=== PATIENT | male | born 1965 | race Caucasian/White ===

== ENCOUNTER 2018-12-06 13:39 | Inpatient (IN) | payer BC, OTHER ==
[2018-12-06 14:41] LABS: Protime INR 1.08
[2018-12-06] MEDS ORDERED: NITROGLYCERIN 0.4 MG/TAB SL ONE (14:50)
[2018-12-06 14:55] LABS: Absolute Lymphocytes (CBC) 3.2 K/uL (0.7-4.9); Absolute Monocytes 0.8 K/uL (0.1-1.3); Absolute Neutrophil 6.8 K/uL (1.8-8.0); Basophils % 0.6 % (0-1.3); Eosinophils % 2.4 % (0-4.4); Lymphocytes % 28.5 % (15.3-44.8); MPV 9.4 fL (7.6-11.3)
[2018-12-06 15:01] LABS: Potassium 3.7 mmol/L (3.5-5.1); Troponin (Emerg Dept Use Only) 0.06 ng/mL (0.0-0.045)
--- NOTE | 2018-12-06 15:14 | RAD REPORT ---
EXAM DESCRIPTION: RAD - Chest Single View - 12/06/2018 2:35 pm CLINICAL HISTORY: CHEST PAIN Chest pain. COMPARISON: 3D DIAG ASH BILAT W/CAD dated 12/06/2018CHEST SINGLE VIEW dated 02/25/2010; CHEST SINGLE EW dated 02/24/2010 FINDINGS: Portable technique limits examination quality. The lungs are grossly clear. The heart is normal in size. No displaced fractures. IMPRESSION: No acute intrathoracic process suspected.
[2018-12-06] MEDS ORDERED: FENTANYL CITR 100 MCG/2 ML ONE (15:25)
[2018-12-06] MEDS ORDERED: NA CHLORIDE 0.9% 500 ML ONE (15:25)
[2018-12-06] MEDS ORDERED: ONDANSETRON 4 MG/2 ML VIAL ONE (15:25)
[2018-12-06] MEDS ORDERED: CLOPIDOGREL 75 MG TABLET ONE (15:31)
[2018-12-06] MEDS ORDERED: ENOXAPARIN 80 MG/0.8 ML SQ ONE (15:31)
--- NOTE | 2018-12-06 15:37 | EKG ---
Test Date: 2018-12-06 Test Time: 14:00:34 Call Out Operator: SINTIA MEASUREMENT RESULTS: Intervals: Rate: 98 ND: 114 QRSD: 94 QT: 354 QTc: 451 [place]: P: 73 ND: 114 QRS: 72 T: 70 INTERPRETIVE STATEMENTS: Normal sinus rhythm Normal ECG Compared to ECG 02/27/2010 06:50:48 Left ventricular hypertrophy no longer present Myocardial infarct finding no longer present Electronically Signed On 12-06-18 15:37:28 CDT by Gilson Gordon
--- NOTE | 2018-12-06 16:18 | EDPHYS ---
Physician Documentation [facility] Name: Sky Jasso Age: 53 yrs Sex: Male : 1965 Arrival Date: 12/06/2018 Time: 13:42 Bed 5 Private MD: Cj Barrientos B ED Physician Terell Steward HPI: 12/06 14:29 This 53 yrs old Male presents to ER via Wheelchair with complaints of Chest rn Pain, Arm Pain. 14:29 The patient or guardian reports chest pain that is located primarily in the substernal rn area. 14:29 Onset: just prior to arrival. The pain radiates to The chest pain is described as rn cramping/stiff. Duration: The patient or guardian reports a single episode, that is now resolved. Modifying factors: The symptoms are alleviated by nothing. the symptoms are aggravated by nothing. Severity of pain: At its worst the pain was moderate in the emergency department the pain has resolved. The patient has experienced a previous episode. Reports previous IL several years ago,returns with chest pain, stiff, radiates to neck, similar to previous IL but not as bad, was driving when it began, had neck pain last night, got worse this AM, now chest pain resolved. . Historical: - Allergies: 13:50 No Known Allergies; rb1 - Home Meds: 13:50 lisinopril Oral [Active]; rb1 - PMHx: 13:50 CHF; Hypertension; lumbar injections; rb1 - PSHx: 13:50 cardiac stents; rb1 - Family history:: not pertinent. - Hospitalizations: : No recent hospitalization is reported. ROS: 14:29 Constitutional: Negative for fever, chills, and weight loss, Eyes: Negative for injury, rn pain, redness, and discharge, Neck: Negative for injury, pain, and swelling, Cardiovascular: Negative for palpitations, and edema, Respiratory: Negative for shortness of breath, cough, wheezing, and pleuritic chest pain, Abdomen/GI: Negative for abdominal pain, diarrhea, and constipation, MS/Extremity: Negative for injury and deformity, Neuro: Negative for headache, weakness, numbness, tingling, and seizure. Exam: 14:29 Constitutional: This is a well developed, well nourished patient who is awake, alert, rn and in no acute distress. Head/Face: Normocephalic, atraumatic. Eyes: Pupils equal round and reactive to light, extra-ocular motions intact. Lids and lashes normal. Conjunctiva and sclera are non-icteric and not injected. Cornea within normal limits. Periorbital areas with no swelling, redness, or edema. Neck: Trachea midline, no thyromegaly or masses palpated, and no cervical lymphadenopathy. Supple, full range of motion without nuchal rigidity, or vertebral point tenderness. No Meningismus. Cardiovascular: Regular rate and rhythm. No pulse deficits. Respiratory: Lungs have equal breath sounds bilaterally, clear to auscultation. No increased work of breathing, no retractions or nasal flaring. Abdomen/GI: Soft, non-tender. No evidence of tenderness throughout. MS/ Extremity: Pulses equal, no cyanosis. Neurovascular intact. Full, normal range of motion. Equal circumference. Neuro: Awake and alert, GCS 15, oriented to person, place, time, and situation. Cranial nerves II-XII grossly intact. Motor strength 5/5 in all extremities. Sensory grossly intact. Vital Signs: 13:50 BP 142 / 90; Pulse 106; Resp 18; Temp 98.2; Pulse Ox 97% on R/A; Weight 86.18 kg; rb1 Height 5 ft. 10 in. (177.80 cm); Pain 5/10; 14:44 BP 148 / 95; Pulse 105; Resp 16 S; Pulse Ox 95% on R/A; Pain 6/10; iw 15:04 BP 108 / 81; Pulse 94; Resp 16; Pulse Ox 97% on R/A; Pain 8/10; iw 15:56 BP 135 / 91; Pulse 84; Resp 16 S; Pulse Ox 98% on R/A; Pain 0/10; iw 17:50 BP 137 / 86; Pulse 73; Resp 16; Pulse Ox 98% on R/A; iw 19:44 BP 132 / 94; Pulse 82; Resp 17; Pulse Ox 98% on R/A; tl2 13:50 Body Mass Index 27.26 (86.18 kg, 177.80 cm) rb1 MDM: 13:56 Patient medically screened. rn 14:11 ED course: Denies current chest pain. rn 16:16 Differential diagnosis: acute myocardial infarction, acute pericarditis, coronary rn artery disease pericarditis, stable angina, unstable angina. Data reviewed: vital signs, nurses notes, lab test result(s), EKG, radiologic studies, plain films, and as a result, I will admit patient. Counseling: I had a detailed discussion with the patient and/or guardian regarding: the historical points, exam findings, and any diagnostic results supporting the discharge/admit diagnosis, lab results, radiology results, the need for further work-up and treatment in the hospital. Response to treatment: the patient's symptoms have markedly improved after treatment, and as a result, I will admit patient. Admission orders: after a detailed discussion of the patient's condition and case, the admit orders are written by me. ED course: Chest pain resolved, mild elevation in troponin, UA vs NSTEMI, will admit to Dr. Jimenez with cardiology consult. . 16:16 The patient was not given aspirin in the Emergency Department. Patient reports taking rn aspirin within the past 24 hours. 12/06 14:11 Order name: Basic Metabolic Panel; Complete Time: 15:11 12/06 14:11 Order name: CBC with Diff; Complete Time: 15: 12/06 14:11 Order name: NT PRO-BNP; Complete Time: 15:11 rn 12/06 14:11 Order name: PT-INR; Complete Time: 15:11 12/06 14:11 Order name: Troponin (emerg Dept Use Only); Complete Time: 15:11 rn 12/06 14:11 Order name: XRAY Chest (1 view); Complete Time: 15:15 rn 12/06 13:56 Order name: EKG; Complete Time: 13:57 12/06 17:55 Order name: Diet Heart Healthy; Complete Time: 17:56 12/06 13:56 Order name: EKG - Nurse/Tech; Complete Time: 14:08 12/06 14:11 Order name: Cardiac monitoring; Complete Time: 15:21 rn 12/06 14:11 Order name: IV Saline Lock; Complete Time: 14:26 rn 12/06 14:11 Order name: Labs collected and sent; Complete Time: 14:26 rn 12/06 14:11 Order name: O2 Per Protocol; Complete Time: 15:21 rn 12/06 14:11 Order name: O2 Sat Monitoring; Complete Time: 15:21 rn Administered Medications: 14:40 Drug: Nitroglycerin 0.4 mg Route: Sublingual; iw 15:18 Drug: fentaNYL (PF) 25 mcg Route: IVP; Site: right forearm; iw 15:18 Drug: Zofran 4 mg Route: IVP; Site: right forearm; iw 15:18 Drug: NS 0.9% 500 ml Route: IV; Rate: bolus; Site: right forearm; iw 15:28 Drug: PlaVIX 75 mg Route: PO; iw 15:29 Drug: Lovenox 80 mg Route: Sub-Q; Site: right lower abdomen; iw Disposition: 12/06/18 16:18 Hospitalization ordered by Eduardo Jimenez for Inpatient Admission. Preliminary diagnosis are Chest pain, unspecified, Non-ST elevation (NSTEMI) myocardial infarction. - Bed requested for Telemetry/MedSurg (Inpatient). - Status is Inpatient Admission. tl2 - Condition is Stable. - Problem is new. - Symptoms have improved. UTI on Admission? No Signatures: Dispatcher [employer] EDNavya Beltran RN RN Monica Piña RN RN Terell Steward MD MD rn Smirch, Shelby, RN RN Vannessa Das RN RN [facility] Jaymie Young RN RN tl2 Corrections: (The following items were deleted from the chart) 18:14 16:18 Hospitalization Ordered by Eduardo Jimenez DO for Inpatient Admission. Preliminary dw diagnosis is Chest pain, unspecified; Non-ST elevation (NSTEMI) myocardial infarction. Bed requested for Telemetry/MedSurg (Inpatient). Status is Inpatient Admission. Condition is Stable. Problem is new. Symptoms have improved. UTI on Admission? No. rn 20:14 18:14 12/06/2018 16:18 Hospitalization Ordered by Eduardo Jimenez DO for Inpatient tl2 Admission. Preliminary diagnosis is Chest pain, unspecified; Non-ST elevation (NSTEMI) myocardial infarction. Bed requested for Telemetry/MedSurg (Inpatient). Status is Inpatient Admission. Condition is Stable. Problem is new. Symptoms have improved. UTI on Admission? No. dw
--- NOTE | 2018-12-06 16:18 | ER ---
Nurse's Notes [facility] Name: Sky Jasso Age: 53 yrs Sex: Male : 1965 Arrival Date: 12/06/2018 Time: 13:42 Bed 5 Private MD: Cj Barrientos B Diagnosis: Chest pain, unspecified;Non-ST elevation (NSTEMI) myocardial infarction Presentation: 12/06 13:46 Presenting complaint: Patient states: c/o neck stiffness last night and chest pain 4/10 rb1 now, radiates to the left arm. Had to loop puller to vomit on the way here due to pain 05/05. Denies cough, SOB, fever. Transition of care: patient was not received from another setting of care. Onset of symptoms was December 05, 2018 at 20:00. Risk Assessment: Do you want to hurt yourself or someone else?. 13:46 Method Of Arrival: Wheelchair rb1 13:46 Acuity: SHLOMO 3 rb1 Triage Assessment: 13:50 General: Appears in no apparent distress. comfortable, Behavior is calm, cooperative, rb1 Denies fever. Neuro: Level of Consciousness is awake, alert, obeys commands, Oriented to person, place, time, situation. Cardiovascular: Rhythm is sinus tachycardia. Respiratory: Airway is patent Respiratory effort is even, unlabored, Respiratory pattern is regular, symmetrical. GI: Reports nausea, vomiting. Derm: Skin is pink, warm \T\ dry. Historical: - Allergies: 13:50 No Known Allergies; rb1 - Home Meds: 13:50 lisinopril Oral [Active]; rb1 - PMHx: 13:50 CHF; Hypertension; lumbar injections; rb1 - PSHx: 13:50 cardiac stents; rb1 - Family history:: not pertinent. - Hospitalizations: : No recent hospitalization is reported. Screenin:15 Abuse screen: Denies threats or abuse. Denies injuries from another. Nutritional hb screening: No deficits noted. Tuberculosis screening: No symptoms or risk factors identified. Fall Risk None identified. Assessment: 14:40 Reassessment: pt c/o increasing left sided chest pain 6/10, radiates to back ,started iw coming back just now, Dr. Steward notified, verbal order for nitro SL, given now. 14:50 Reassessment: pt c/o nausea, BP down to 99/69 after Nitro, pain unchanged. iw 15:04 Reassessment: pt states nausea has gotten better, pressure up to 113/83, pain starting iw to increase. 15:56 Reassessment: Patient appears in no apparent distress at this time. Patient and/or iw family updated on plan of care and expected duration. Pain level reassessed. Patient is alert, oriented x 3, equal unlabored respirations, skin warm/dry/pink. Patient denies pain at this time. Patient states feeling better. Patient states symptoms have improved. Vital Signs: 13:50 BP 142 / 90; Pulse 106; Resp 18; Temp 98.2; Pulse Ox 97% on R/A; Weight 86.18 kg; rb1 Height 5 ft. 10 in. (177.80 cm); Pain 5/10; 14:44 BP 148 / 95; Pulse 105; Resp 16 S; Pulse Ox 95% on R/A; Pain 6/10; iw 15:04 BP 108 / 81; Pulse 94; Resp 16; Pulse Ox 97% on R/A; Pain 8/10; iw 15:56 BP 135 / 91; Pulse 84; Resp 16 S; Pulse Ox 98% on R/A; Pain 0/10; iw 17:50 BP 137 / 86; Pulse 73; Resp 16; Pulse Ox 98% on R/A; iw 19:44 BP 132 / 94; Pulse 82; Resp 17; Pulse Ox 98% on R/A; tl2 13:50 Body Mass Index 27.26 (86.18 kg, 177.80 cm) rb1 ED Course: 13:42 Patient arrived in ED. mr 13:43 Cj Barrientos MD is Private Physician. mr 13:49 Triage completed. rb1 13:56 Terell Steward MD is Attending Physician. rn 14:00 EKG done, by photo tech. reviewed by Terell Steward MD. lt1 14:10 Monica Piña, CARY is Primary Nurse. iw 14:15 Arm band placed on. hb 14:24 Initial lab(s) drawn, by me, sent to lab. Inserted saline lock: 20 gauge in right iw forearm, using aseptic technique. Blood collected. Patient maintains SpO2 saturation greater than 95% on room air. 14:29 X-ray completed. Portable x-ray completed in exam room. Patient tolerated procedure sw well. 14:35 XRAY Chest (1 view) In Process Unspecified. EDMS 16:17 Eduardo Jimenez DO is Hospitalizing Provider. rn 19:01 No provider procedures requiring assistance completed. Patient admitted, IV remains in iw place. Administered Medications: 14:40 Drug: Nitroglycerin 0.4 mg Route: Sublingual; iw 15:18 Drug: fentaNYL (PF) 25 mcg Route: IVP; Site: right forearm; iw 15:18 Drug: Zofran 4 mg Route: IVP; Site: right forearm; iw 15:18 Drug: NS 0.9% 500 ml Route: IV; Rate: bolus; Site: right forearm; iw 15:28 Drug: PlaVIX 75 mg Route: PO; iw 15:29 Drug: Lovenox 80 mg Route: Sub-Q; Site: right lower abdomen; iw Outcome: 16:18 Decision to Hospitalize by Provider. rn 20:14 Patient left the ED. tl2 Signatures: Dispatcher [employer] EDGA [place] Monica Piña RN RN iw Terell Steward MD MD rn Warren, Shannon sw Barber, Rebecca RN CARY [facility] Anika Lay RN RN hb Knox, Taylor, RN RN tl2 Herminia Sutton 1 Corrections: (The following items were deleted from the chart) 15:04 14:50 Reassessment: pt states nausea has gotten better, pressure up to 113/83, pain iw starting to increase iw
--- NOTE | 2018-12-06 17:08 | P.HP ---
Certification for Inpatient Patient admitted to: Observation With expected LOS: <2 Midnights Patient will require the following post-hospital care: None Practitioner: I am a practitioner with admitting privileges, knowledge of patient current condition, hospital course, and medical plan of care. Services: Services provided to patient in accordance with Admission requirements found in Title 42 Section 412.3 of the Code of Federal Regulations Patient History Date of Service: 12/06/18 Primary Care Provider: Dr. Villafuerte; Cardiology-Dr. Gardner; Pain-Dr. Barrientos Reason for admission: Chest pain History of Present Illness: 53-year-old male presented to the emergency room with chest pain. Patient reported chest pain this morning. It was mainly to the left side. If it would radiate to the left shoulder. It was associated with some nausea, vomiting and shortness of breath. Patient reported a stiff neck last night. Patient with prior history of CAD, hypertension. Patient reports history of AL - 7 years ago with 2 stents placed. Patient reports having a stress test several months ago. He only recollected that the doctor told him that he had carotid arterial disease with 80% blockage noted. Patient reports chest pain as being similar to his prior heart attack. In the ER patient evaluated. Blood pressure slightly elevated. Chest x-ray unremarkable. EKG shows no significant ST changes. Initial troponin 0.06. White count 11.1. Hemoglobin 14. Sodium 140, potassium 3.7. Creatinine 1.12. Patient was admitted for further evaluation. When I saw the patient ER, he appeared stable. He is without any chest pain. ER reports that the patient did get nitroglycerin with reports of increased nausea. Patient was then given Zofran with improvement. Allergies No Known Allergies Allergy (Unverified 06/27/17 18:03) Home medications list reviewed: Yes Home Medications: Hydrocodone Bit/Acetaminophen [Hydrocodon-Acetaminophn 10-325] 1 tab PO Q8HP 09/12 Lisinopril [Prinivil] 20 mg PO DAILY 06/27/17 Ciprofloxacin HCl [Cipro 500 MG Tablet] 500 mg PO DAILY #14 tab 06/29/17 metroNIDAZOLE [Flagyl] 500 mg PO Q8H #42 tablet 06/29/17 - Past Medical/Surgical History Diabetic: No -: HTN -: CAD, prior AL with 2 stents -: Carotid arterial disease -: Hyperlipidemia -: Chronic pain -: Stent x2 Psychosocial/ Personal History: Patient is - Family History Father -: Heart disease Mother -: Heart disease - Social History Smoking Status: Light Tobacco smoker (1-9 cigarettes/day) Counseled patient to stop smoking for: less than 10 minutes Smoking therapy provided: Yes Patient receptive to therapy: Yes Alcohol use: Yes CD- Drugs: No Caffeine use: Yes Place of Residence: Home Review of Systems General: As per HPI Eyes: Unremarkable ENT: Unremarkable Respiratory: As per HPI Cardiovascular: Chest Pain, As per HPI Gastrointestinal: Nausea, Vomiting, As per HPI Genitourinary: Unremarkable Musculoskeletal: Unremarkable Integumentary: Unremarkable Neurological: Unremarkable Lymphatics: Unremarkable Physical Examination - Physical Exam General: Alert, In no apparent distress, Oriented x3, Cooperative HEENT: Atraumatic, Normocephalic, PERRLA, Mucous membr. moist/pink, EOMI Neck: Supple, No Thyromegaly Respiratory: Clear to auscultation bilaterally, Normal air movement Cardiovascular: Normal pulses, Regular rate/rhythm Gastrointestinal: Normal bowel sounds, Soft and benign, Non-distended, No tenderness, No masses, No rebound, No guarding Musculoskeletal: No erythema, No tenderness, No warmth Integumentary: No tenderness/swelling, No erythema, No warmth, No cyanosis Neurological: Normal speech, Normal strength at 5/5 x4 extr, Normal tone, Normal affect - Studies Laboratory Data (last 24 hrs) 12/06/18 14:23: PT 12.7 H, INR 1.08 12/06/18 14:23: WBC 11.1 H, Hgb 14.8, Hct 44.0, Plt Count 224 12/06/18 14:23: Sodium 140, Potassium 3.7, BUN 19 H, Creatinine 1.12, Glucose 179 H Assessment and Plan - Plan Impression: Chest pain likely unstable angina with history of CAD and 2 prior stents Hypertension Hyperlipidemia Chronic pain Plan: Chest pain likely unstable angina with history of CAD and 2 prior stents: Patient will be admitted for further evaluation. Will continue with aspirin, lisinopril, statin medication. Will continue with DVT prophylaxis-Lovenox. Will continue to monitor cardiac enzymes and telemetry. Will obtain echocardiogram. Cardiology has been consulted. Anticipate likely need for cardiac evaluation-heart catheterization to further evaluate. Await further recommendations. Hypertension: Continue with lisinopril. Will continue to adjust medication. Hyperlipidemia: Will start Lipitor 80 mg daily. Chronic pain: Will continue with home medication. Discharge Plan: Home Plan to discharge in: 24 Hours - Advance Directives Does patient have a Living Will: No Does patient have a Durable POA for Healthcare: No - Code Status/Comfort Care Code Status Assessed: Yes (Patient is full code. ) Time Spent Managing Pts Care (In Minutes): 55
[2018-12-06] MEDS ORDERED: METOPROLOL TARTRATE 5 MG/5 ML INJ IV ONE ×2 (17:12→18:11)
[2018-12-06] MEDS ORDERED: NA CHLORIDE 0.9% 1,000 ML ONE (17:13)
[2018-12-06 20:44] VITALS: BMI 26.7
[2018-12-06] MEDS ORDERED: HYDROCODONE/APAP 10/325 TAB PO PRN (20:54)
[2018-12-06] MEDS ORDERED: ACETAMINOPHEN 500 MG TAB PO PRN (20:54)
[2018-12-06] MEDS ORDERED: MORPHINE 2 MG/ML SYR IV PRN (20:54)
[2018-12-06] MEDS ORDERED: ONDANSETRON 4 MG/2 ML VIAL IV PRN (20:54)
[2018-12-06] MEDS ORDERED: NITROGLYCERIN 0.4 MG/TAB SL PRN (20:54)
[2018-12-06 21:20] LABS: Urine Appearance CLEAR; Urine Bilirubin NEGATIVE (NEG); Urine Blood NEGATIVE (NEG); Urine Color YELLOW; Urine Glucose TRACE (NEG); Urine Protein NEGATIVE (NEG); Urine Specific Gravity 1.025 (1.005-1.030); Urine Urobilinogen 0.2 mg/dL (0.2-1.0); Urine pH 6.5 (5.0-7.0)
[2018-12-06 21:26] LABS: Urine Microscopic Reflex NO UMIC
[2018-12-06] MEDS: NA CHLORIDE 0.9% 1,000 ML IV SCH (21:35)
[2018-12-06] MEDS: ATORVASTATIN 80 MG TAB PO SCH (21:36)
[2018-12-06] MEDS: FAMOTIDINE 20 MG TAB PO SCH (21:36)
[2018-12-06] MEDS: LISINOPRIL 10 MG TAB PO SCH (21:36)
[2018-12-06 22:38] LABS: Thyroid Stimulating Hormone 1.29 uIU/mL (0.360-3.740)
[2018-12-06 22:39] LABS: CKMB Creatine Kinase MB 14.4 ng/mL (0.3-3.6); Troponin I 1.36 ng/mL (0.0-0.045)
[2018-12-07 05:53] LABS: Absolute Lymphocytes (CBC) 3.4 K/uL (0.7-4.9); Absolute Monocytes 0.9 K/uL (0.1-1.3); Absolute Neutrophil 6.2 K/uL (1.8-8.0); Basophils % 0.5 % (0-1.3); Eosinophils % 2.9 % (0-4.4); Hematocrit 43.2 % (39.6-49.0); Lymphocytes % 31.4 % (15.3-44.8); MPV 9.2 fL (7.6-11.3); Monocytes % 8.3 % (3.3-12.3); RBC Red Blood Cell Count 4.61 M/uL (4.33-5.43)
[2018-12-07 06:18] LABS: Potassium 4.4 mmol/L (3.5-5.1)
[2018-12-07 06:20] LABS: CKMB Creatine Kinase MB 18.8 ng/mL (0.3-3.6); Magnesium 1.2 mg/dL (1.8-2.4); Troponin I 2.87 ng/mL (0.0-0.045)
[2018-12-07] MEDS ORDERED: Magnesium Sulfate 2gm IVPB 2 G/50 ML BAG IV ONE ×2 (06:42→19:51)
[2018-12-07] MEDS: ASPIRIN EC 81 MG TAB PO SCH (08:35)
[2018-12-07] MEDS: FAMOTIDINE 20 MG TAB PO SCH ×2 (08:35→20:21)
[2018-12-07] MEDS: LISINOPRIL 10 MG TAB PO SCH ×2 (08:35→20:19)
[2018-12-07] MEDS: ENOXAPARIN 80 MG/0.8 ML SQ SCH ×3 (08:36→20:19)
[2018-12-07] MEDS ORDERED: ENOXAPARIN 40 MG/0.4 ML SQ SCH (09:00)
--- NOTE | 2018-12-07 10:49 | P.PN ---
Subjective Date of Service: 12/07/18 Primary Care Provider: Dr. Villafuerte; Cardiology-Dr. Gardner; Pain-Dr. Barrientos Chief Complaint: Chest pain Subjective: Doing well Physical Examination - Vital Signs Temperature: 97.5 F Blood Pressure: 127/75 Pulse: 69 Respirations: 18 Pulse Ox (%): 97 - Physical Exam General: Alert, In no apparent distress, Oriented x3, Cooperative HEENT: Atraumatic Neck: Supple Respiratory: Clear to auscultation bilaterally, Normal air movement Cardiovascular: Normal pulses, Regular rate/rhythm Gastrointestinal: Normal bowel sounds, Soft and benign, Non-distended, No tenderness, No masses, No rebound, No guarding Musculoskeletal: No erythema, No tenderness, No warmth Integumentary: No tenderness/swelling, No erythema, No warmth, No cyanosis Neurological: Normal speech, Normal strength at 5/5 x4 extr, Normal tone, Normal affect - Studies Laboratory Data (last 24 hrs) 12/07/18 05:13: WBC 10.9, Hgb 14.6, Hct 43.2, Plt Count 196 12/07/18 05:13: Sodium 142, Potassium 4.4, BUN 16, Creatinine 0.88, Glucose 94, Magnesium 1.2 L*, Troponin I 2.87 H* D, Triglycerides 147, Cholesterol 151, HDL Cholesterol 39 L, Cholesterol/HDL Ratio 3.87 12/06/18 21:55: Troponin I 1.36 H* 12/06/18 14:23: PT 12.7 H, INR 1.08 12/06/18 14:23: WBC 11.1 H, Hgb 14.8, Hct 44.0, Plt Count 224 12/06/18 14:23: Sodium 140, Potassium 3.7, BUN 19 H, Creatinine 1.12, Glucose 179 H Medications List Reviewed: Yes Assessment & Plan Discharge Plan: Home Plan to discharge in: 24 Hours Physician Review Additional Text: Impression: Chest pain secondary to non ST wave NJ with unstable angina, history of CAD and 2 prior stents Hypertension Hyperlipidemia Chronic pain Plan: Chest pain secondary to non ST wave NJ with unstable angina, history of CAD and 2 prior stents: Troponin elevated. Patient continues with medication treatment. Cardiology to assess. Anticipate heart catheterization today. Await findings. Will discuss further with cardiology. Hypertension: Continue with medication. Will monitor and adjust appropriately.. Hyperlipidemia: Continue medication Chronic pain: Will continue with home medication. Time Spent Managing Pts Care (In Minutes): 55
[2018-12-07] MEDS ORDERED: LIDOCAINE 1% MPF 30 ML VIAL ONE (11:43)
[2018-12-07] MEDS ORDERED: HEPA 1000U/500MLS 1,000 UNIT/500 ML BAG IV ONE (11:43)
[2018-12-07] MEDS ORDERED: FENTANYL CITR 100 MCG/2 ML ONE ×2 (12:13→12:24)
[2018-12-07] MEDS ORDERED: MIDAZOLAM HCL 2 MG/2 ML INJ ONE ×2 (12:13→12:24)
[2018-12-07] MEDS ORDERED: NA CHLORIDE 0.9% 50 ML ONE (12:14)
[2018-12-07] MEDS ORDERED: ATROPINE SULF 1 MG/10 ML SYR IV ONE (12:14)
--- NOTE | 2018-12-07 12:32 | ECHO ---
HEIGHT: 5 ft 10 in WEIGHT: 186 lb 8 oz DATE OF STUDY: 12/07/[address]: Eduardo Jimenez DO 2-DIMENSIONAL: YES M.MODE: YES DOPPLER: YES COLOR FLOW: YES TDS: NO PORTABLE: NO DEFINITY: NO BUBBLE STUDY: NO DIAGNOSIS: CHEST PAIN, HYPERTENSION CARDIAC HISTORY: CATHERIZATION: YES SURGERY: NO PROSTHETIC VALVE: NO PACEMAKER: NO MEASUREMENTS (cm) DIASTOLIC (NORMALS) SYSTOLIC (NORMALS) IVSd 1.1 (0.6-1.2) LA Diam 3.4 (1.9-4.0) LVEF 50% LVIDd 4.8 (3.5-5.7) LVIDs 3.5 (2.0-3.5) %FS 26% LVPWd 1.0 (0.6-1.2) Ao Diam 3.1 (2.0-3.7) 2 DIMENSIONAL ASSESSMENT: RIGHT ATRIUM: NORMAL LEFT ATRIUM: NORMAL RIGHT VENTRICLE: NORMAL LEFT VENTRICLE: NORMAL TRICUSPID VALVE: NORMAL MITRAL VALVE: NORMAL PULMONIC VALVE: NORMAL AORTIC VALVE: NORMAL PERICARDIAL EFFUSION: NONE AORTIC ROOT: NORMAL LEFT VENTRICULAR WALL MOTION: NORMAL DOPPLER/COLOR FLOW: MILD TRICUSPID REGURGITATION. COMMENTS: NORMAL LEFT VENTRICULAR SIZE AND FUNCTION. NO WALL MOTION ABNORMALITY. NO EFFUSION. MILD TRICUSPID REGURGITATION. TECHNOLOGIST: Alexis MCCOLLUM
[2018-12-07] MEDS ORDERED: PRASUGREL (EFFIENT) 10 MG TAB ONE (13:07)
[2018-12-07] MEDS: NA CHLORIDE 0.9% 1,000 ML IV SCH (16:54)
--- NOTE | 2018-12-07 17:10 | CON ---
Date of Consultation: 12/07/2018 The patient was admitted to Dr. Jimenez' service on 12/06/2018. I saw the patient on 12/07/2018. Reason For Consultation: Non-ST elevation myocardial infarction. History Of Present Illness: Mr. Jasso is a 53-year-old white male with known history of hypertensio n, coronary artery disease, dyslipidemia, status post coronary artery disease with stenting in the [facility] by Dr. Gardner. He said his last stent was approximately 7 years ago. About a year ago, he had a stress test that was negative. He came in with chest pain radiating to the arm, elevated troponin, and abnormal EKG consistent with non-STEMI. His symptoms have been going on for about an hour. Past Medical History: As stated above. Allergies: NONE. Review of Systems: Negative. Social History: Positive for tobacco. Family History: Positive for heart disease. Medications: At home include lisinopril, Lipitor, aspirin, and carvedilol. Physical Examination: Vital Signs: Stable. He was afebrile. HEENT: Negative. Neck: Supple without any bruit, lymphadenopathy, JVD, or thyromegaly. Chest: Clear to auscultation and percussion. Cardiac: Revealed a regular rhythm and rate without any murmurs, gallops, or rubs. Abdomen: Benign. Extremities: Revealed no clubbing, cyanosis, or edema. Diagnostic Data: As stated earlier. Impression And Plan: 1.Smv-[id number] myocardial infarction. 2.History of coronary artery disease, status post stent in the past. 3.Dyslipidemia. 4.Hypertension. 5.History of congestive heart failure. The patient is stable, hemodynamically asymptomatic. He is on the appropriate medical therapy. Case was discussed with him and with Dr. Jimenez with the plan is for heart catheterization to define his coronary anatomy today. The patient understands the risk and the benefit of the procedure and he agr ees to proceed. DAMIAN/CHRISTOPHER Voice ID: [id number] Report ID: [id number]
[2018-12-07] MEDS: ATORVASTATIN 80 MG TAB PO SCH (20:19)
--- NOTE | 2018-12-08 00:07 | OP ---
Date of Procedure: 12/07/2018 Surgeon: Mikie Berkowitz MD Waste/Materials Exchange Specialist: Diogo Waldron and Ms. Mitchell. Admitted to Dr. Jimenez on 12/06/2018. Procedures: Left heart catheterization, selective coronary arteriogram, and angioplasty of the circu mflex. Indication For The Procedure: [id number] myocardial infarction. Mr. Jasso is 53, has a history of hypertension, dyslipidemia, CAD, status post circumflex stent many years ago. Last stress test about a year ago was negative. He came in with chest pain, left arm ra diation, positive troponin. Brought to the labor economist today as an inpatient after signing a consent. He was prepped and draped in routine sterile fashion, given 4 mg of Versed and 100 of fentanyl for IV sedation. Right common femoral artery access was obtained successfully. Angiography there was norm al. Angio-Seal was used to close the case. Diagnostic catheterization using Yen catheter reveal ed a normal RCA, which is right-dominant and normal LAD. He had about a 99% in-stent restenosis of t he circumflex and it was a long stent. We used an XB 3.0 with side hole guide, a [place] wire to cros s the lesion successfully. Dilatation with a 2.5 x 15 Emerge balloon. Multiple dilatation along the stent revealed 0% residual, no dissection. It was decided not to stent it considering the lesion wa s at the bifurcation of an OM and a very small nondominant circumflex. We gave him Angiomax, Effient , and aspirin during the procedure. There were no complications. Blood Loss: 5 cc. Total Conscious Sedation: 45 minutes. Willower: Myself. Final Diagnosis: CAD, status post successful angioplasty of an in-stent restenosis in the circumflex . Plan: To send him home tomorrow morning and I will see him in the office in 2 weeks. He will be on aspirin, statin, Plavix, and his home medication. NB/MODL Voice ID: [id number] Report ID: [id number]
[2018-12-08 06:08] LABS: Absolute Monocytes 0.9 K/uL (0.1-1.3); Absolute Neutrophil 5.3 K/uL (1.8-8.0); Basophils % 0.4 % (0-1.3); Eosinophils % 2.6 % (0-4.4); Lymphocytes % 31.8 % (15.3-44.8); MPV 9.2 fL (7.6-11.3); Monocytes % 9.5 % (3.3-12.3); RBC Red Blood Cell Count 4.81 M/uL (4.33-5.43)
[2018-12-08 06:27] LABS: Potassium 4.7 mmol/L (3.5-5.1)
[2018-12-08] MEDS: ENOXAPARIN 80 MG/0.8 ML SQ SCH (08:14)
[2018-12-08] MEDS: LISINOPRIL 10 MG TAB PO SCH (08:15)
[2018-12-08] MEDS: ASPIRIN EC 81 MG TAB PO SCH (08:15)
[2018-12-08] MEDS: FAMOTIDINE 20 MG TAB PO SCH (08:15)
[2018-12-08 08:17] VITALS: BP 140/90
--- NOTE | 2018-12-08 08:44 | P.DS ---
Admission Date: 12/07/18 Discharge Date: 12/08/18 Primary Care Provider: Dr. Villafuerte; Cardiology-Dr. Gardner; Pain-Dr. Barrientos Disposition: ROUTINE DISCHARGE Discharge Condition: GOOD Reason for Admission: Chest pain Consultations: Cardiology-Dr. Berkowitz Procedures: ECHO: EF 50% LEFT VENTRICULAR WALL MOTION: NORMAL DOPPLER/COLOR FLOW: MILD TRICUSPID REGURGITATION. COMMENTS: NORMAL LEFT VENTRICULAR SIZE AND FUNCTION. NO WALL MOTION ABNORMALITY. NO EFFUSION. MILD TRICUSPID REGURGITATION. Heart Cath: Date of Procedure: 12/07/2018 Surgeon: Mikie Berkowitz MD Inspector Timers: Diogo Waldron and Ms. Mitchell. Admitted to Dr. Jimenez on 12/06/2018. Procedures: Left heart catheterization, selective coronary arteriogram, and angioplasty of the circumflex. Indication For The Procedure: [id number] myocardial infarction. Mr. Jasso is 53, has a history of hypertension, dyslipidemia, CAD, status post circumflex stent many years ago. Last stress test about a year ago was negative. He came in with chest pain, left arm radiation, positive troponin. Diagnostic catheterization using Yen catheter revealed a normal RCA, which is right-dominant and normal LAD. He had about a 99% in-stent restenosis of the circumflex and it was a long stent. Multiple dilatation along the stent revealed 0% residual, no dissection. It was decided not to stent it considering the lesion was at the bifurcation of an OM and a very small nondominant circumflex. Blood Loss: 5 cc. Final Diagnosis: CAD, status post successful angioplasty of an in-stent restenosis in the circumflex. Medical Problem List: Chest pain secondary to non ST wave SD with unstable angina/CAD, status post heart catheterization with angioplasty of instent restenosis of the circumflex artery, history of CAD and 2 prior stents Hypertension Hyperlipidemia Chronic pain Brief History of Present Illness: 53-year-old male presented to the emergency room with chest pain. Patient reported chest pain this morning. It was mainly to the left side. If it would radiate to the left shoulder. It was associated with some nausea, vomiting and shortness of breath. Patient reported a stiff neck last night. Patient with prior history of CAD, hypertension. Patient reports history of SD - 7 years ago with 2 stents placed. Patient reports having a stress test several months ago. He only recollected that the doctor told him that he had carotid arterial disease with 80% blockage noted. Patient reports chest pain as being similar to his prior heart attack. In the ER patient evaluated. Blood pressure slightly elevated. Chest x-ray unremarkable. EKG shows no significant ST changes. Initial troponin 0.06. White count 11.1. Hemoglobin 14. Sodium 140, potassium 3.7. Creatinine 1.12. Patient was admitted for further evaluation. When I saw the patient ER, he appeared stable. He is without any chest pain. ER reports that the patient did get nitroglycerin with reports of increased nausea. Patient was then given Zofran with improvement. Hospital Course: Patient presented with chest pain secondary to non ST wave SD with unstable angina/CAD. Patient seen and evaluated by Cardiology. Cardiology recommended heart catheterization to further evaluate. Heart catheterization revealed normal RCA, which is right dominant and normal LAD. He had about 99% instent restenosis of the circumflex. It was a long stent. Multiple dilations of the stent revealed 0% residual and no dissection. It was decided not to stent it considering the a lesion was at the bifurcation of the OM and very small nondominant circumflex. Patient tolerated procedure well. He is without any significant chest pain. At discharge patient will continue with aspirin 81 mg daily, Plavix 75 mg daily, Lipitor 80 mg daily, and lisinopril 10 mg 1 pill twice daily. Patient will be provided nitroglycerin as needed for chest pain cardiology in 2-4 weeks time monitor his progress. Recommend tobacco cessation. Patient with underlying hypertension. Medications have been adjusted. At discharge he will continue with lisinopril 10 mg 1 pill twice daily. Recommend to maintain blood pressures less 150/80. Further adjustment can be done by his PCP or cardiology. Patient with hyperlipidemia. Medication has been adjusted. Patient will continue with Lipitor 80 mg daily. Patient with chronic pain. Patient may continue with his current medication. Patient with tobacco abuse. Recommend tobacco cessation. Patient currently vapes. This can be further addressed as an outpatient. Vital Signs/Physical Exam: Temp Pulse Resp BP Pulse Ox 98.1 F 72 16 140/90 96 12/08/18 04:00 12/08/18 08:15 12/08/18 04:00 12/08/18 08:15 12/08/18 04:00 General: Alert, In no apparent distress, Oriented x3, Cooperative HEENT: Atraumatic Neck: Supple Respiratory: Clear to auscultation bilaterally, Normal air movement Cardiovascular: Normal pulses, Regular rate/rhythm Gastrointestinal: Normal bowel sounds, Soft and benign, Non-distended, No tenderness, No masses, No rebound, No guarding Musculoskeletal: No erythema, No tenderness, No warmth Integumentary: No tenderness/swelling, No erythema, No warmth, No cyanosis Neurological: Normal speech, Normal strength at 5/5 x4 extr, Normal tone, Normal affect Laboratory Data at Discharge: WBC 9.4 K/uL (4.3-10.9) 12/08/18 05:31 Hgb 15.1 g/dL (13.6-17.9) 12/08/18 05:31 Hct 45.0 % (39.6-49.0) 12/08/18 05:31 Plt Count 207 K/uL (152-406) 12/08/18 05:31 PT 12.7 SECONDS (9.5-12.5) H 12/06/18 14:23 INR 1.08 12/06/18 14:23 Sodium 141 mmol/L (136-145) 12/08/18 05:31 Potassium 4.7 mmol/L (3.5-5.1) 12/08/18 05:31 BUN 12 mg/dL (7-18) 12/08/18 05:31 Creatinine 0.96 mg/dL (0.55-1.3) 12/08/18 05:31 Glucose 90 mg/dL (74-106) 12/08/18 05:31 Magnesium 2.0 mg/dL (1.8-2.4) D 12/08/18 05:31 Troponin I 2.87 ng/mL (0.0-0.045) H* D 12/07/18 05:13 Triglycerides 147 mg/dL (<150) 12/07/18 05:13 Cholesterol 151 mg/dL (<200) 12/07/18 05:13 HDL Cholesterol 39 mg/dL (40-60) L 12/07/18 05:13 Cholesterol/HDL Ratio 3.87 12/07/18 05:13 Home Medications: Tizanidine [Zanaflex*] 4 mg PO DAILY 12/07/18 Aspirin [Aspirin EC 81 MG] 81 mg PO DAILY #90 tablet.dr 12/08/18 Atorvastatin Calcium [Lipitor] 80 mg PO BEDTIME #30 tab 12/08/18 Clopidogrel Bisulfate [Plavix] 75 mg PO DAILY #30 tablet 12/08/18 Lisinopril [Prinivil*] 10 mg PO BID #60 tab 12/08/18 Nitroglycerin [Nitrostat*] 0.4 mg SL SEECOM PRN #15 tab 12/08/18 New Medications: Aspirin [Aspirin EC 81 MG] 81 mg PO DAILY #90 tablet. Atorvastatin Calcium [Lipitor] 80 mg PO BEDTIME #30 tab Clopidogrel Bisulfate [Plavix] 75 mg PO DAILY #30 tablet Lisinopril [Prinivil*] 10 mg PO BID #60 tab Nitroglycerin [Nitrostat*] 0.4 mg SL SEECOM PRN #15 tab PRN Reason: Pain Scale 2-4 (Mild) Patient Discharge Instructions: 1. Patient will follow up with his PCP in 1 week to follow up this hospitalization. 2. Patient presented with chest pain secondary to non ST wave SD with unstable angina/CAD. Patient seen and evaluated by Cardiology. Cardiology recommended heart catheterization to further evaluate. Heart catheterization revealed normal RCA, which is right dominant and normal LAD. He had about 99% instent restenosis of the circumflex. It was a long stent. Multiple dilations of the stent revealed 0% residual and no dissection. It was decided not to stent it considering the a lesion was at the bifurcation of the OM and very small nondominant circumflex. Patient tolerated procedure well. He is without any significant chest pain. At discharge patient will continue with aspirin 81 mg daily, Plavix 75 mg daily, Lipitor 80 mg daily, and lisinopril 10 mg 1 pill twice daily. Patient will be provided nitroglycerin as needed for chest pain cardiology in 2-4 weeks time monitor his progress. Recommend tobacco cessation. 3. Patient with underlying hypertension. Medications have been adjusted. At discharge he will continue with lisinopril 10 mg 1 pill twice daily. Recommend to maintain blood pressures less 150/80. Further adjustment can be done by his PCP or cardiology. 4. Patient with hyperlipidemia. Medication has been adjusted. Patient will continue with Lipitor 80 mg daily. 5. Patient with chronic pain. Patient may continue with his current medication. 6. Patient with tobacco abuse. Recommend tobacco cessation. Patient currently vapes. This can be further addressed as an outpatient. Diet: AHA Activity: Ad farrah Time spent managing pt's care (in minutes): 55
[2018-12-08 09:17] VITALS: TEMP 97.8
[2018-12-08 11:02] VITALS: O2SAT 95
== END 2018-12-08 10:00 | disposition home or self-care (01) | DRG 250 ==
LOC: ER 13:39 → ERHOLD 16:58 → 2ND 19:38 → OBSVTOIN 12-07 09:05
PROVIDERS: ADMIT Family Medicine; ATTEND Family Medicine
PROC: 02703ZZ Dilation of Coronary Artery, One Artery, Percutaneous Approach (ICD-10-PCS; principal; 2018-12-07)
PROC: 4A023N7 Measurement of Cardiac Sampling and Pressure, Left Heart, Percutaneous Approach (ICD-10-PCS; 2018-12-07)
PROC: B2111ZZ Fluoroscopy of Multiple Coronary Arteries using Low Osmolar Contrast (ICD-10-PCS; 2018-12-07)
DX: T82.855A Stenosis of coronary artery stent, initial encounter (principal); I21.4 Non-ST elevation (NSTEMI) myocardial infarction; I25.10 Atherosclerotic heart disease of native coronary artery without angina pectoris; I10 Essential (primary) hypertension; F17.210 Nicotine dependence, cigarettes, uncomplicated; Y84.0 Cardiac catheterization as the cause of abnormal reaction of the patient, or of later complication, without mention of misadventure at the time of the procedure; E78.5 Hyperlipidemia, unspecified; G89.29 Other chronic pain; I25.2 Old myocardial infarction
CPT/HCPCS: 36415; 71045; 80048; 80061; 81003; 82550; 82553; 83735; 83880; 84439; 84443; 84484; 85025; 85347; 85610; 92928; 93005; 93306; 93454; 96365; 96367; 96372; 96374; 96375; 99285; C1725; C1760; C1893; G0378; J0583; J1650; J2250; J2405; J3010; J3475; J7030

== ENCOUNTER 2021-12-25 17:28 | Emergency (ER) | payer OTHER ==
[2021-12-25 19:28] LABS: Urine Blood Negative (Negative); Urine Glucose Negative (Negative); Urine Protein Negative (Negative); Urine Specific Gravity 1.015 (1.005-1.030)
[2021-12-25 19:36] LABS: Absolute Lymphocytes (CBC) 4.1 K/uL (0.7-4.9); Hematocrit 45.5 % (39.6-49.0); Lymphocytes % 36.8 % (15.3-44.8); MPV 8.4 fL (7.6-11.3); RBC Red Blood Cell Count 5.11 M/uL (4.33-5.43)
[2021-12-25 19:49] LABS: Urine Bacteria <20 /HPF (NONE SEEN); Urine RBC <5 /HPF (NONE SEEN)
[2021-12-25 20:00] LABS: Albumin 3.9 g/dL (3.4-5.0); Bilirubin Total 0.4 mg/dL (0.2-1.0); Potassium 3.9 mmol/L (3.5-5.1); Protein, Total 7.5 g/dL (6.4-8.2)
--- NOTE | 2021-12-25 20:05 | RAD REPORT ---
EXAM DESCRIPTION: US - Abdomen Exam Limited - 12/25/2021 7:59 pm CLINICAL HISTORY: RUQ pain COMPARISON: Abdomen Exam Complete dated 12/18/2016 FINDINGS: The gallbladder demonstrates no gallstones. No pericholecystic fluid or gallbladder wall t hickening. The common bile duct is normal measuring 3 mm. The liver demonstrates no findings of intrahepatic biliary dilatation. IMPRESSION: Negative for cholelithiasis, acute cholecystitis, or biliary ductal dilatation.
--- NOTE | 2021-12-25 20:52 | RAD REPORT ---
EXAM DESCRIPTION: CTAbdomen Pelvis W Contrast - 12/25/2021 8:39 pm CLINICAL HISTORY: Abdominal pain, acute, nonlocalized COMPARISON: Abdomen Exam Limited dated 12/25/2021 TECHNIQUE: CT of the abdomen and pelvis was performed. All CT scans are performed using dose optimization technique as appropriate and may include automated exposure control or mA/KV adjustment according to patient size. FINDINGS: Lower chest: Coronary artery stents. Liver: No acute abnormality or suspicious lesions. Biliary: No biliary ductal dilatation. Stomach: No significant focal abnormality. Duodenum: No significant focal abnormality. Pancreas: No significant abnormality. Spleen: No significant abnormality. Adrenal: No suspicious lesions. Kidney/ureter: No hydronephrosis. No renal calculi. Retroperitoneum: No retroperitoneal adenopathy. Vascular: No aneurysm. Atherosclerosis. Bowel: No significant focal abnormality. Peritoneum: No ascites or free air. Small fat containing inguinal hernias. Bladder: Grossly unremarkable. Reproductive: No masses. Bones: No acute fracture. Remote left eleventh rib fracture. Degenerative changes are present at L5-S 1. Other: n/a IMPRESSION: No acute intra-abdominal or pelvic finding.
[2021-12-25] MEDS ORDERED: NA CHLORIDE 0.9% 500 ML ONE ×2 (21:20→21:24)
[2021-12-25] MEDS ORDERED: NA CHLORIDE 0.9% 1,000 ML ONE (21:20)
[2021-12-25] MEDS ORDERED: KETOROLAC 30 MG/ML INJ ONE (21:20)
[2021-12-25] MEDS ORDERED: ONDANSETRON 4 MG/2 ML VIAL ONE (21:20)
--- NOTE | 2021-12-25 21:44 | EDPHYS ---
Physician Documentation [facility] Name: Sky Jasso Age: 56 yrs Sex: Male : 1965 Arrival Date: 12/25/2021 Time: 17:38 Bed 6 Private MD: ED Physician Gustabo Coelho HPI: 12/25 19:05 This 56 yrs old Male presents to ER via Ambulatory with complaints of Abdominal Pain. cp 19:05 The patient presents with abdominal pain in the right upper quadrant. Onset: The cp symptoms/episode began/occurred 1 month(s) ago, and became worse yesterday. The symptoms radiate to right back. Associated signs and symptoms: Pertinent positives: nausea, Pertinent negatives: vomiting. Historical: - Allergies: 18:02 No Known Allergies; ld1 - PMHx: 18:02 CHF; Hypertension; lumbar injections; Hypercholesterolemia; CO; Chronic back pain; ld1 - PSHx: 18:02 None; ld1 - Immunization history:: Adult Immunizations up to date, Client reports receiving the 2nd dose of the Covid vaccine. - Social history:: Smoking status: Patient reports the use of cigarette tobacco products, smokes one pack cigarettes per day. Patient/guardian denies using alcohol. ROS: 19:10 Constitutional: Negative for body aches, chills, fever, poor PO intake. cp 19:10 Eyes: Negative for injury, pain, redness, and discharge. cp 19:10 ENT: Negative for drainage from ear(s), ear pain, sore throat, difficulty swallowing, difficulty handling secretions. 19:10 Cardiovascular: Negative for chest pain, palpitations. 19:10 Respiratory: Negative for cough, shortness of breath, wheezing. 19:10 Abdomen/GI: Positive for abdominal pain, nausea, of the right upper quadrant, Negative for vomiting, diarrhea, constipation. 19:10 Back: Positive for radiated pain, Negative for injury or acute deformity, decreased range of motion. 19:10 : Negative for urinary symptoms, testicular pain 19:10 Neuro: Negative for altered mental status, dizziness, headache, weakness. 19:10 All other systems are negative. Exam: 19:15 Constitutional: The patient appears in no acute distress, alert, awake, cp non-diaphoretic, non-toxic, well developed, well nourished. 19:15 Head/Face: Normocephalic, atraumatic. cp 19:15 Eyes: Periorbital structures: appear normal, Conjunctiva: normal, no exudate, no injection, Sclera: no appreciated abnormality, Lids and lashes: appear normal, bilaterally. 19:15 ENT: External ear(s): are unremarkable, Nose: is normal, Mouth: Lips: moist, Oral mucosa: moist, Posterior pharynx: Airway: no evidence of obstruction, patent. 19:15 Chest/axilla: Inspection: normal, Palpation: is normal, no crepitus, no tenderness. 19:15 Cardiovascular: Rate: normal, Rhythm: regular, Edema: is not appreciated, JVD: is not appreciated. 19:15 Respiratory: the patient does not display signs of respiratory distress, Respirations: normal, no use of accessory muscles, no retractions, labored breathing, is not present, Breath sounds: are clear throughout, no decreased breath sounds, no stridor, no wheezing. 19:15 Abdomen/GI: Inspection: abdomen appears normal, Bowel sounds: active, all quadrants, Palpation: soft, in all quadrants, mild abdominal tenderness, in the right upper quadrant, rebound tenderness, is not appreciated, voluntary guarding, is not appreciated, involuntary guarding, is not appreciated. 19:15 Back: pain, that is moderate, of the right mid back. 19:15 Skin: no rash present. 19:15 Neuro: Orientation: to person, place \T\ time. Mentation: is normal, Motor: moves all fours, strength is normal, Sensation: is normal. Vital Signs: 18:01 BP 145 / 93; Pulse 98; Resp 20; Temp 98.3(O); Pulse Ox 98% on R/A; Weight 86.18 kg; ld1 Height 5 ft. 10 in. (177.80 cm); Pain 8/10; 21:32 BP 166 / 88; Pulse 76; Resp 18 S; Pulse Ox 92% on R/A; as6 22:30 BP 159 / 97; Pulse 72; Resp 18; Pulse Ox 100% on R/A; kd3 18:01 Body Mass Index 27.26 (86.18 kg, 177.80 cm) ld1 MDM: 18:52 Patient medically screened. cp 21:43 Data reviewed: vital signs. Data interpreted: Pulse oximetry: on room air is 98 %. pm1 Interpretation: normal. Counseling: I had a detailed discussion with the patient and/or guardian regarding: the historical points, exam findings, and any diagnostic results supporting the discharge/admit diagnosis, lab results, radiology results, the need for outpatient follow up, to return to the emergency department if symptoms worsen or persist or if there are any questions or concerns that arise at home. 12/25 19:10 Order name: CBC with Diff; Complete Time: 20:02 cp 12/25 20:02 Interpretation: Normal except: WBC 11.1; MCV 89.1; EOSINOPHIL % 6.1; EOSA 0.7. cp 12/25 19:10 Order name: CMP; Complete Time: 20:02 cp 12/25 20:03 Interpretation: Normal except: BUN 20; GFR 69; GLOB 3.6. cp 12/25 19:10 Order name: Lipase; Complete Time: 20:02 cp 12/25 19:10 Order name: Urine Microscopic Only; Complete Time: 20:02 cp 12/25 19:10 Order name: Abdomen Limited US: RUQ/epigastric; Complete Time: 20:07 cp 12/25 19:29 Order name: Urine Dipstick-Ancillary; Complete Time: 20:02 EDMS 12/25 19:10 Order name: IV Saline Lock; Complete Time: 19:28 cp 12/25 19:10 Order name: Labs collected and sent; Complete Time: 19:28 cp 12/25 20:08 Order name: CT Abd/Pelvis - IV Contrast Only; Complete Time: 21:38 cp Administered Medications: 21:27 Drug: NS 0.9% 1000 ml Route: IV; Rate: 1 bolus; Site: left antecubital; as6 22:29 Follow up: Response: No adverse reaction; IV Status: Completed infusion kd3 21:27 Drug: Zofran (Ondansetron) 4 mg Route: IVP; Site: left antecubital; as6 22:29 Follow up: Response: No adverse reaction; Nausea is decreased kd3 21:27 Drug: NS 0.9% 500 ml Route: IV; Rate: bolus; Site: left antecubital; as6 22:29 Follow up: Response: No adverse reaction; IV Status: Completed infusion kd3 21:27 Drug: NS 0.9% 500 ml Route: IV; Rate: 125 ml/hr; Site: left antecubital; as6 22:29 Follow up: Response: No adverse reaction; IV Status: Completed infusion kd3 21:27 Drug: Ketorolac 15 mg Route: IVP; Site: left antecubital; as6 22:29 Follow up: Response: No adverse reaction; Pain is decreased kd3 Disposition Summary: 12/25/21 21:44 Discharge Ordered Location: Home pm1 Problem: new pm1 Symptoms: have improved pm1 Condition: Stable pm1 Diagnosis - Abdominal pain, unspecified pm1 Followup: pm1 - With: Emergency Department - When: As needed - Reason: Worsening of condition Followup: pm1 - With: Private Physician - When: 2 - 3 days - Reason: Recheck today's complaints, Continuance of care, Re-evaluation by your physician Discharge Instructions: - Discharge Summary Sheet pm1 - Abdominal Pain, Adult pm1 Forms: - Medication Reconciliation Form pm1 - Thank You Letter pm1 - Antibiotic Education pm1 - Prescription Opioid Use pm1 Signatures: Dispatcher [employer] EDMS Abilio Zaman PA PA cp Barrington Lares, RELAY OPERATOR RELAY OPERATOR pm1 Lor Palencia RN RN ld1 Eleno Saeed RN RN as6 Zulema Beaulieu RN kd3 Corrections: (The following items were deleted from the chart) 20:03 20:02 Normal except: BUN 20; GFR 69. cp cp
--- NOTE | 2021-12-25 21:44 | ER ---
Nurse's Notes [facility] Name: Sky Jasso Age: 56 yrs Sex: Male : 1965 Arrival Date: 12/25/2021 Time: 17:38 Bed 6 Private MD: Diagnosis: Abdominal pain, unspecified Presentation: 12/25 18:01 Chief complaint: Patient states: RUQ pain X 1 month on and off. Coronavirus screen: At ld1 this time, the client does not indicate any symptoms associated with coronavirus-19. Ebola Screen: No symptoms or risks identified at this time. Initial Sepsis Screen: Does the patient meet any 2 criteria? No. Patient's initial sepsis screen is negative. Does the patient have a suspected source of infection? No. Patient's initial sepsis screen is negative. Risk Assessment: Do you want to hurt yourself or someone else? Patient reports no desire to harm self or others. Onset of symptoms was December 25, 2021. 18:01 Method Of Arrival: Ambulatory ld1 18:01 Acuity: SHLOMO 3 ld1 Triage Assessment: 18:02 General: Appears in no apparent distress. comfortable, Behavior is calm, cooperative, ld1 appropriate for age. Pain: Complains of pain in right upper quadrant Pain does not radiate. Pain currently is 8 out of 10 on a pain scale. Quality of pain is described as sharp, shooting, throbbing, Pain began gradually. EENT: No signs and/or symptoms were reported regarding the EENT system. Neuro: Level of Consciousness is awake, alert, obeys commands, Oriented to person, place, time, situation. Cardiovascular: Capillary refill < 3 seconds Patient's skin is warm and dry. Respiratory: Airway is patent Respiratory effort is even, unlabored. GI: Abdomen is round non-distended. : No signs and/or symptoms were reported regarding the genitourinary system. Derm: No signs and/or symptoms reported regarding the dermatologic system. Musculoskeletal: No signs and/or symptoms reported regarding the musculoskeletal system. Historical: - Allergies: 18:02 No Known Allergies; ld1 - PMHx: 18:02 CHF; Hypertension; lumbar injections; Hypercholesterolemia; MO; Chronic back pain; ld1 - PSHx: 18:02 None; ld1 - Immunization history:: Adult Immunizations up to date, Client reports receiving the 2nd dose of the Covid vaccine. - Social history:: Smoking status: Patient reports the use of cigarette tobacco products, smokes one pack cigarettes per day. Patient/guardian denies using alcohol. Screenin:28 Abuse screen: Denies threats or abuse. Denies injuries from another. Nutritional as6 screening: No deficits noted. Tuberculosis screening: No symptoms or risk factors identified. Fall Risk None identified. Assessment: 21:28 General: Appears uncomfortable, Behavior is calm, cooperative. Pain: Complains of pain as6 in right mid back and abdomen and right upper quadrant. Neuro: Vernno Agitation-Sedation Scale (RASS): 0 - Alert and Calm Level of Consciousness is awake, alert, obeys commands, Oriented to person, place, time, situation. Cardiovascular: JVD is absent Patient's skin is warm and dry. Respiratory: Respiratory effort is even, unlabored, Respiratory pattern is regular, symmetrical. GI: Reports upper abdominal pain, nausea. Vital Signs: 18:01 BP 145 / 93; Pulse 98; Resp 20; Temp 98.3(O); Pulse Ox 98% on R/A; Weight 86.18 kg; ld1 Height 5 ft. 10 in. (177.80 cm); Pain 8/10; 21:32 BP 166 / 88; Pulse 76; Resp 18 S; Pulse Ox 92% on R/A; as6 22:30 BP 159 / 97; Pulse 72; Resp 18; Pulse Ox 100% on R/A; kd3 18:01 Body Mass Index 27.26 (86.18 kg, 177.80 cm) ld1 ED Course: 17:38 Patient arrived in ED. am2 17:42 Abilio Zaman PA is PHCP. cp 17:42 Gustabo Coelho MD is Attending Physician. cp 18:02 Triage completed. ld1 18:02 Arm band placed on right wrist. ld1 19:27 Inserted saline lock: 20 gauge in left antecubital area, using aseptic technique. Blood mb7 collected. 19:28 Bed in low position. Call light in reach. Side rails up X 1. Door closed. Noise mb7 minimized. Warm blanket given. 19:28 CBC with Diff Sent. mb7 19:28 Urine Microscopic Only Sent. mb7 19:28 CMP Sent. mb7 19:28 Lipase Sent. mb7 20:01 Abdomen Limited US: RUQ/epigastric In Process Unspecified. EDMS 20:38 PHCP role handed off by Abilio Zaman PA pm1 20:38 Barrington Lares NP is PHCP. pm1 20:41 CT Abd/Pelvis - IV Contrast Only In Process Unspecified. EDMS 20:41 Eleno Saeed, RN is Primary Nurse. as6 22:28 No provider procedures requiring assistance completed. IV discontinued, intact, kd3 bleeding controlled, No redness/swelling at site. Pressure dressing applied. Administered Medications: 21:27 Drug: NS 0.9% 1000 ml Route: IV; Rate: 1 bolus; Site: left antecubital; as6 22:29 Follow up: Response: No adverse reaction; IV Status: Completed infusion kd3 21:27 Drug: Zofran (Ondansetron) 4 mg Route: IVP; Site: left antecubital; as6 22:29 Follow up: Response: No adverse reaction; Nausea is decreased kd3 21:27 Drug: NS 0.9% 500 ml Route: IV; Rate: bolus; Site: left antecubital; as6 22:29 Follow up: Response: No adverse reaction; IV Status: Completed infusion kd3 21:27 Drug: NS 0.9% 500 ml Route: IV; Rate: 125 ml/hr; Site: left antecubital; as6 22:29 Follow up: Response: No adverse reaction; IV Status: Completed infusion kd3 21:27 Drug: Ketorolac 15 mg Route: IVP; Site: left antecubital; as6 22:29 Follow up: Response: No adverse reaction; Pain is decreased kd3 Medication: 21:29 VIS not applicable for this client. as6 Outcome: 21:44 Discharge ordered by MD. pm1 22:28 Discharged to home ambulatory. kd3 22:28 Condition: stable 22:28 Discharge instructions given to patient, Instructed on discharge instructions, follow up and referral plans. Demonstrated understanding of instructions, follow-up care. 22:30 Patient left the ED. kd3 Signatures: Dispatcher [employer] EDMS Abilio Zaman PA PA cp Barrington Lares NP PARAMEDIC INSTRUCTOR pm1 Dina Gomez am2 Lor Palencia RN RN ld1 Eleno Saeed RN RN as6 Zulema Beaulieu RN RN kd3 Spenceran, Elvi mb7
[2021-12-25 22:54] VITALS: TEMP 98.3
[2021-12-25 23:01] VITALS: BP 159/97; O2SAT 100
== END 2021-12-25 22:30 | disposition home or self-care (01) ==
LOC: ER 17:28
DX: R10.11 Right upper quadrant pain (principal); I10 Essential (primary) hypertension; I50.9 Heart failure, unspecified; F17.210 Nicotine dependence, cigarettes, uncomplicated
CPT/HCPCS: 96361; 85025; 36415; 83690; 80053; 74177; 76705; 96375; 96374; 99284; Q9967; J7040 ×2; J7030; J2405; 81003; 81015